=== PATIENT | male | born 1960 | race Caucasian/White ===

== ENCOUNTER 2019-07-19 08:03 | Inpatient (IN) | payer BC, OTHER ==
[2019-07-19] MEDS ORDERED: NORMAL SALINE 1000 ML 1,000 ML IV ONE (08:12)
[2019-07-19] MEDS ORDERED: HYDROMORPHONE HCL INJ/PF 2 MG/ML AMPULE IV ONE ×2 (08:12→10:31)
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
[2019-07-19 08:38] LABS: ABSOLUTE EOSINOPHILS # (AUTO) 0.1 10^3/uL (0.0-0.6); ABSOLUTE LYMPHOCYTES (AUTO) 1.1 10^3/uL (0.5-4.7); ABSOLUTE MONOCYTES (AUTO) 0.6 10^3/uL (0.1-1.4); ABSOLUTE NEUT (AUTO) 2.5 10^3/uL (1.7-8.2); EOSINOPHILS % (AUTO) 2.7 % (0-6); HEMATOCRIT 41.1 % (37.9-51.0); HEMOGLOBIN 14.6 g/dL (13.5-17.0); MEAN CORPUSCULAR HEMOGLOBIN 32.8 pg (27.0-33.4); MEAN CORPUSCULAR HGB CONC 35.5 g/dL (32.0-36.0); MEAN CORPUSCULAR VOLUME 92 fl (80-97); PLATELET COUNT 248 10^3/uL (150-450); RED BLOOD COUNT 4.45 10^6/uL (4.35-5.55); RED CELL DISTRIBUTION WIDTH 12.5 % (11.5-14.0); SEGMENTED NEUTROPHILS % (AUTO) 56.3 % (42-78); TOTAL CELLS COUNTED % (AUTO) 100 %; WHITE BLOOD COUNT 4.4 10^3/uL (4.0-10.5)
[2019-07-19 08:51] LABS: ANION GAP 11 (5-19); BLOOD UREA NITROGEN 10 mg/dL (7-20); CALCIUM 10.5 mg/dL (8.4-10.2); CARBON DIOXIDE 22 mmol/L (22-30); CHLORIDE 104 mmol/L (98-107); GLUCOSE 110 mg/dL (75-110); POTASSIUM 4.5 mmol/L (3.6-5.0)
--- NOTE | 2019-07-19 09:46 | RADIOLOGY REPORT (SQ) ---
EXAM DESCRIPTION: HIP RIGHT AP/LATERAL COMPLETED DATE/TIME: 07/19/2019 9:24 am REASON FOR STUDY: fall, pain with ambulating, pain COMPARISON: None. NUMBER OF VIEWS: Two views. TECHNIQUE: AP pelvis and additional frog-leg view of the right hip. LIMITATIONS: None. FINDINGS: MINERALIZATION: Normal. RIGHT HIP: Comminuted intertrochanteric right femur fracture with mild displacement and medial angula tion of the distal fracture fragment. LEFT HIP: No fracture dislocation. Mild degenerative changes with osteophytosis and joint space loss . PUBIS AND ISCHIUM: No fracture. PELVIS: No fracture. SACRUM: No fracture or dislocation. No worrisome bone lesions. LOWER LUMBAR SPINE: No fracture or dislocation. No worrisome bone lesions. No significant disc disea se. SOFT TISSUES: No findings. OTHER: No other significant finding. IMPRESSION: Mildly displaced intertrochanteric right femur fracture. TECHNICAL DOCUMENTATION: JOB ID: [id number] [employer]- All Rights Reserved Reading location - IP/workstation name: [email or web address]
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
[2019-07-19] MEDS ORDERED: FENTANYL CITRATE INJ/PF 100 MCG/2 ML AMPUL ONE ×2 (13:22→13:50)
[2019-07-19] MEDS ORDERED: MIDAZOLAM 2 MG/2 ML INJ ONE (13:22)
[2019-07-19] MEDS ORDERED: PROPOFOL INJ 200 MG/20 ML VIAL IV ONE (13:22)
[2019-07-19] MEDS ORDERED: LIDOCAINE 2% INJ (20 MG/ML) 20 ML MDV ONE (13:23)
[2019-07-19] MEDS ORDERED: CEFAZOLIN INJ 1 GM VIAL ONE (13:39)
[2019-07-19] MEDS ORDERED: HYDROMORPHONE HCL INJ/PF 2 MG/ML AMPULE ONE (13:50)
[2019-07-19] MEDS ORDERED: MEPERIDINE HCL/PF INJ 25 MG/1 ML DISP.SYRIN IV PRN (14:27)
[2019-07-19] MEDS ORDERED: DIPHENHYDRAMINE HCL 50 MG/ML VIAL IV PRN (14:27)
[2019-07-19] MEDS ORDERED: FENTANYL CITRATE INJ/PF 100 MCG/2 ML AMPUL IV PRN ×3 (14:27)
[2019-07-19] MEDS ORDERED: OXYCODONE-ACETAMINOPHEN 5-325 MG TABLET PO PRN ×2 (14:27)
[2019-07-19] MEDS ORDERED: PROMETHAZINE HCL INJ 25 MG/1 ML VIAL IV PRN ×2 (14:27)
--- NOTE | 2019-07-19 15:23 | Operative Report ---
Operative Report DATE OF SURGERY: 07/19/19 PREOPERATIVE DIAGNOSIS: Right hip intertrochanteric fracture, displaced POSTOPERATIVE DIAGNOSIS: Right hip intertrochanteric fracture, displaced OPERATION: Reduction internal fixation right hip intertrochanteric fracture with cephalo-medullary gamma nail SURGEON: IVELISSE KOLB ANESTHESIA: GA COMPLICATIONS: None ESTIMATED BLOOD LOSS: 100 cc INTRAOPERATIVE FINDINGS: Same PROCEDURE: Indications for procedure: Mr. Lieberman is a 59-year-old man who sustained a low-energy fall resulting in a displaced fracture of the right hip in the intertrochanteric region. Description of procedure: Following the induction of a general anesthetic and administration of 2 g of Ancef, the patient was positioned supine on the fracture table. All bony prominences were padded. Traction was placed on the leg and image intensification was used to perform a closed reduction of the fracture. Image intensification demonstrated anatomic reduction of the fracture. The right lower extremity was sterilely prepped with ChloraPrep and draped in standard fashion. Incision was made proximal to the greater trochanter. A sharp incision was performed through skin with Bovie electrocautery through the soft tissue. Guidewire was placed in the proper starting position at the greater trochanter. Position of the guidewire was checked on biplanar image intensification. Guidewire was then overreamed and the lauren was placed. Under image intensification a guidewire was placed centrally within the femoral head through the targeting jig. Once proper position was confirmed, measurement was taken of the guidewire. Guidewire was overreamed and a proper sized compression screw was placed. The compression screw was locked dynamically. Using the guide jig a distal locking screw was then placed. Image intensification was brought in which confirmed anatomic reduction of the fracture and correct placement of implants. Copious irrigation of all 3 wounds was performed. Fascia was reapproximated with 2-0 Vicryl. The subcutaneous tissue was closed with 2-0 Vicryl. The skin was reapproximated with hilda and a sterile dressing was applied. The patient tolerated the procedure well without complications and was brought to recovery room in stable condition.
--- NOTE | 2019-07-19 15:50 | RADIOLOGY REPORT (SQ) ---
EXAM DESCRIPTION: HIP IN OPERATING RM COMPLETED DATE/TIME: 07/19/2019 3:31 pm REASON FOR STUDY: ORIF RT HIP IN OR COMPARISON: Right hip two views 07/19/2019 FLUOROSCOPY TIME: 30 seconds 5 fluoroscopic images saved to PACS. TECHNIQUE: Intra-operative images acquired during surgical procedure to evaluate progress. NUMBER OF IMAGES: 5 digital fluoroscopic images LIMITATIONS: None. FINDINGS: 5 digital fluoroscopic images during ORIF right intertrochanteric fracture with good align ment. Please see the operative report for further details. IMPRESSION: Intra procedural imaging and fluoro COMMENT: Quality ID [id number]: Final reports for procedures using fluoroscopy that document radiation exp osure indices, or exposure time and number of fluorographic images (if radiation exposure indices are not available) Please consult full operative report of the attending physician for description of the procedure. TECHNICAL DOCUMENTATION: JOB ID: [id number] [employer]- All Rights Reserved Reading location - IP/workstation name: [email or web address]
[2019-07-19] MEDS ORDERED: NORMAL SALINE 1000 ML 1,000 ML IV PRN (15:54)
[2019-07-19] MEDS ORDERED: ZOLPIDEM TARTRATE 5 MG TABLET PO PRN (15:56)
[2019-07-19] MEDS ORDERED: ACETAMINOPHEN 325 MG TABLET PO PRN (15:56)
[2019-07-19] MEDS ORDERED: ACETAMINOPHEN 1,000 MG/100 ML RTUPB IV ONE (15:58)
[2019-07-19] MEDS: OXYCODONE-ACETAMINOPHEN 5-325 MG TABLET PO PRN (19:29)
[2019-07-19] MEDS ORDERED: NEOSTIGMINE METHYLSULFATE 10 MG/10 ML VIAL ONE (20:26)
[2019-07-19] MEDS ORDERED: ONDANSETRON HCL INJ/PF 4 MG/2 ML SDV ONE (20:26)
[2019-07-19] MEDS ORDERED: ROCURONIUM BROMIDE INJ 50 MG/5 ML VIAL IV ONE (20:26)
[2019-07-19] MEDS ORDERED: GLYCOPYRROLATE 1 MG/5 ML VIAL ONE (20:26)
[2019-07-19] MEDS ORDERED: DEXAMETHASONE SOD PHOSPHATE INJ 4 MG/1 ML VIAL ONE (20:26)
[2019-07-19] MEDS ORDERED: SUCCINYLCHOLINE CHLORIDE INJ 200 MG/10 ML VIAL ONE (20:26)
[2019-07-19] MEDS: CEFAZOLIN SODIUM 2 GM in DEXTROSE 5%-WATER 100 ML IV SCH (21:24)
[2019-07-19] MEDS: HYDROMORPHONE HCL INJ/PF 2 MG/ML AMPULE IV PRN (21:39)
[2019-07-19] MEDS ORDERED: CEFAZOLIN 2 GM/D5W RTU 2 GM/50 ML RTUPB IV SCH (22:00)
[2019-07-20] MEDS: HYDROMORPHONE HCL INJ/PF 2 MG/ML AMPULE IV PRN ×4 (02:06→20:49)
[2019-07-20] MEDS: CEFAZOLIN SODIUM 2 GM in DEXTROSE 5%-WATER 100 ML IV SCH ×2 (05:28→14:04)
[2019-07-20 06:57] LABS: HEMATOCRIT 28.5 % (37.9-51.0); MEAN CORPUSCULAR HGB CONC 35.4 g/dL (32.0-36.0); MEAN CORPUSCULAR VOLUME 93 fl (80-97); PLATELET COUNT 219 10^3/uL (150-450); RED BLOOD COUNT 3.06 10^6/uL (4.35-5.55); WHITE BLOOD COUNT 7.7 10^3/uL (4.0-10.5)
[2019-07-20 07:00] LABS: HEMOGLOBIN 10.1 g/dL (13.5-17.0)
[2019-07-20 07:20] LABS: ANION GAP 9 (5-19); BLOOD UREA NITROGEN 9 mg/dL (7-20); CALCIUM 9.1 mg/dL (8.4-10.2); CARBON DIOXIDE 26 mmol/L (22-30); CHLORIDE 99 mmol/L (98-107); GLUCOSE 120 mg/dL (75-110); POTASSIUM 4.3 mmol/L (3.6-5.0)
[2019-07-20] MEDS: ENOXAPARIN SODIUM INJ 30 MG/0.3 ML DISP.SYRIN SUBCUT SCH (08:43)
--- NOTE | 2019-07-20 12:03 | PDOC PROGRESS REPORT ---
Subjective Progress Note for:: 07/20/19 Subjective:: The patient states that his pain is significantly improved. He has already been ambulating with the therapist. He was able to walk up and down the hallway without difficulty. Reason For Visit: RIGHT HIP FRACTURE Physical Exam Vital Signs: Temp Pulse Resp BP Pulse Ox 98.4 F 109 H 19 156/66 H 97 07/20/19 07:51 07/20/19 07:51 07/20/19 07:51 07/20/19 07:51 07/20/19 07:51 Intake & Output 07/19/19 07/20/19 07/21/19 06:59 06:59 06:59 Intake Total 5041 Output Total 1200 Balance 3841 Weight 82.1 kg Musculoskeletal exam: PRESENT: other - The surgical dressing is intact. There is some drainage beneath the dressing. There is no discomfort with gentle rotation of the hip. The patient is able to actively move the knee ankle and foot. Sensation is intact to touch. 2+ DP and PT pulses. Results Laboratory Results: 07/20/19 04:57 07/20/19 04:57 07/20/19 07/20/19 04:57 04:57 WBC 7.7 RBC 3.06 L Hgb 10.1 L D Hct 28.5 L MCV 93 MCH 33.0 MCHC 35.4 RDW 12.0 Plt Count 219 Sodium 134.3 L Potassium 4.3 Chloride 99 Carbon Dioxide 26 Anion Gap 9 BUN 9 Creatinine 0.73 Est GFR ( Amer) > 60 Glucose 120 H Calcium 9.1 Impressions: Hip X-Ray 07/19/19 00:00 IMPRESSION: Intra procedural imaging and fluoro Hip/Pelvis X-Ray 07/19/19 00:00 IMPRESSION: Mildly displaced intertrochanteric right femur fracture. Assessment & Plan - Diagnosis (1) Displaced intertrochanteric fracture of right femur, initial encounter for closed fracture Is this a current diagnosis for this admission?: Yes - Time Time Spent with patient: 15-24 minutes Anticipated discharge: Home Within: within 24 hours - The patient is doing exceptionally well postoperative day #1 following intramedullary nail fixation of a displaced right hip intertrochanteric fracture. He will continue to work with physical therapy for ambulation training. He is on Lovenox for DVT prophylaxis. May consider changing him to aspirin for DVT prophylaxis as he is quite ambulatory. We will see how he does overnight and how he progresses with therapy. Possible disch arge home tomorrow.
[2019-07-21] MEDS: HYDROMORPHONE HCL INJ/PF 2 MG/ML AMPULE IV PRN (08:11)
[2019-07-21] MEDS: ENOXAPARIN SODIUM INJ 30 MG/0.3 ML DISP.SYRIN SUBCUT SCH (08:12)
[2019-07-21] MEDS: OXYCODONE-ACETAMINOPHEN 5-325 MG TABLET PO PRN (12:07)
[2019-07-21 13:14] VITALS: BP 150/79
--- NOTE | 2019-07-21 13:22 | Discharge Summary ---
Discharge Summary (SDC) - Discharge Final Diagnosis: Right hip displaced intertrochanteric fracture Date of Surgery: 07/19/19 Discharge Date: 07/21/19 Condition: Good Referrals: IVELISSE KOLB MD [ACTIVE PROVISIONAL STAFF] - Discharge Diet: As Tolerated Respiratory Treatments at Home: Deep Breathing/Coughing Additional Home Respiratory Instructions: rolling walker Discharge Activity: Activity As Tolerated Home Care Assistance: None Needed Adaptive Devices on Discharge: Rolling Walker Report the Following to Your Physician Immediately: Fever over 101 Degrees, Drainage-Foul Smelling
--- NOTE | 2019-07-21 13:27 | PDOC PROGRESS REPORT ---
Subjective Progress Note for:: 07/21/19 Subjective:: The patient is doing quite well. He is ambulating easily with a rolling walker. He is requesting discharge home. Reason For Visit: RIGHT HIP FRACTURE Physical Exam Vital Signs: Temp Pulse Resp BP Pulse Ox 98.6 F 107 H 16 150/79 H 96 07/21/19 12:00 07/21/19 12:00 07/21/19 12:00 07/21/19 12:00 07/21/19 12:00 Intake & Output 07/20/19 07/21/19 07/22/19 06:59 06:59 06:59 Intake Total 5041 2804 Output Total 1200 3500 Balance 3841 -696 Weight 82.1 kg 83.5 kg General appearance: PRESENT: no acute distress Head exam: PRESENT: atraumatic Eye exam: PRESENT: conjunctiva pink, EOMI, PERRLA. ABSENT: scleral icterus Mouth exam: PRESENT: moist, tongue midline Neck exam: ABSENT: carotid bruit, JVD, lymphadenopathy, thyromegaly Respiratory exam: PRESENT: clear to auscultation [place]. ABSENT: rales, rhonchi, wheezes Cardiovascular exam: PRESENT: RRR. ABSENT: diastolic murmur, rubs, systolic murmur Pulses: PRESENT: normal dorsalis pedis pul Vascular exam: PRESENT: normal capillary refill Extremities exam: PRESENT: full ROM. ABSENT: calf tenderness, clubbing, pedal edema Musculoskeletal exam: PRESENT: other - The surgical dressing is intact. There is no discomfort with internal or external rotation of the hip. The patient is able to actively flex and extend his knee, ankle, and foot. Sensation is intact to touch. 2+ dorsalis pedis and posterior tibial pulses. Psychiatric exam: PRESENT: appropriate affect, normal mood. ABSENT: homicidal ideation, suicidal ideation Skin exam: PRESENT: dry, intact, warm. ABSENT: cyanosis, rash Results Laboratory Results: 07/20/19 04:57 07/20/19 04:57 Impressions: Hip X-Ray 07/19/19 00:00 IMPRESSION: Intra procedural imaging and fluoro Hip/Pelvis X-Ray 07/19/19 00:00 IMPRESSION: Mildly displaced intertrochanteric right femur fracture. Assessment & Plan - Diagnosis (1) Displaced intertrochanteric fracture of right femur, initial encounter for closed fracture Is this a current diagnosis for this admission?: Yes - Time Time Spent with patient: 15-24 minutes Anticipated discharge: Home Within: within 24 hours - Plan Summary Plan Summary: The patient is doing quite well. He will be discharged home today with a rolling walker. He has been instructed to remove his dressing on Tuesday and take a shower normally. He is ambulating quite well without assistance. He is able to move all joints of his extremity. There is no need for formal physical therapy at this time. He has been instructed to call my office for a follow-up appointment at 2 weeks following discharge.
== END 2019-07-21 14:53 | disposition home or self-care (01) | DRG 482 ==
LOC: ER 08:03 → EH 11:29 → 4S 16:31
PROVIDERS: ADMIT Orthopaedic Surgery; ATTEND Orthopaedic Surgery
PROC: 0QH606Z Insertion of Intramedullary Internal Fixation Device into Right Upper Femur, Open Approach (ICD-10-PCS; principal; 2019-07-19 13:30)
DX: S72.141A Displaced intertrochanteric fracture of right femur, initial encounter for closed fracture (principal); I10 Essential (primary) hypertension; Z60.2 Problems related to living alone; W01.0XXA Fall on same level from slipping, tripping and stumbling without subsequent striking against object, initial encounter; Y93.55 Activity, bike riding; Y92.480 Sidewalk as the place of occurrence of the external cause
CPT/HCPCS: 01230; 36415; 80048; 85025; 85027; 96361; 96374; 96376; 99285; C1713; J0131; J0330; J0690; J1100; J1170; J1650; J2250; J2405; J2704; J2710; J3010; J3490; J7030; J7060